=== PATIENT | female | born 1995 | race Caucasian/White ===

== ENCOUNTER 2023-04-09 15:45 | Emergency (ER) | payer SELFPAY ==
[2023-04-09 16:00] VITALS: BP 100/71; PULSE 70; RESP 20; TEMP 97.6
[2023-04-09] MEDS ORDERED: ACETAMINOPHEN 500 MG TABLET (FP) PO ONE (17:15)
[2023-04-09] MEDS ORDERED: ACETAMINOPHEN 1000 MG/100 ML BAG IVPB ONE (17:26)
[2023-04-09] MEDS ORDERED: SODIUM CHLORIDE 0.9% 500 ML INFUS.BAG IV ONE (17:26)
[2023-04-09] MEDS ORDERED: ACETAMINOPHEN INJECTION 100 ML IVPB ONE (17:39)
[2023-04-09 18:22] LABS: EPI CELLS 24 /uL (0-25.1); HCG,QUALITATIVE URINE Negative; HYALINE CASTS 7 /uL (0-3.1); URINE APPEARANCE CLOUDY; URINE BACTERIA >9,000 /uL (0-1359); URINE BILIRUBIN NEGATIVE (NEGATIVE); URINE COLOR YELLOW; URINE GLUCOSE (UA) NEGATIVE (NEGATIVE); URINE KETONE TRACE (NEGATIVE); URINE LEUK ESTERASE 2+ (NEGATIVE); URINE NITRITE POSITIVE (NEGATIVE); URINE PROTEIN 1+ (NEGATIVE); URINE UROBILINOGEN 0.2 mg/dL (0.2-1.0); URINE WBC 624 /uL (0-25.8)
[2023-04-09 18:25] LABS: BASO % 0.5 % (0-2.0); EOS % 1.1 % (0-4.5); HEMATOCRIT 34.3 % (32.4-45.2); HEMOGLOBIN 11.1 GM/dL (10.7-15.3); LYMPH % 23.1 % (8-40); MCH 29.9 pg (25.7-33.7); MCHC 32.3 g/dl (32.0-36.0); MEAN CELL VOLUME 92.5 fl (80-96); MONO % 5.2 % (3.8-10.2); NEUT % 70.1 % (42.8-82.8); PLATELET COUNT 125 10^3/uL (134-434); RBC 3.71 M/mm3 (3.60-5.2); RDW 13.8 % (11.6-15.6); WHITE BLOOD COUNT 10.6 K/mm3 (4.0-10.0)
[2023-04-09 18:33] LABS: POTASSIUM 3.4 mmol/L (3.5-5.1)
[2023-04-09 18:36] LABS: CALCIUM 9.3 mg/dL (8.5-10.1)
[2023-04-09 18:37] LABS: ALBUMIN 3.7 g/dl (3.4-5.0); BLOOD UREA NITROGEN 13.5 mg/dL (7-18)
[2023-04-09 18:40] LABS: CREATININE 0.5 mg/dL (0.55-1.3)
[2023-04-09 18:41] LABS: BILIRUBIN,TOTAL 0.5 mg/dL (0.2-1); TOT PROT 6.8 g/dl (6.4-8.2)
[2023-04-09] MEDS ORDERED: CEFTRIAXONE 1,000 MG in DEXTROSE 5%-WATER - 50 ML IVPB ONE (18:59)
[2023-04-09 19:11] LABS: URINE RBC 31.6 /uL (0-23.9)
[2023-04-09 19:12] LABS: YEAST NONE SEEN (NEGATIVE)
[2023-04-09] MEDS ORDERED: CEFTRIAXONE 1 GM/50 ML BAG ONE (19:41)
== END 2023-04-09 22:26 | disposition home or self-care (01) ==
LOC: JER 15:45
PROC: 3E03329 Introduction of Other Anti-infective into Peripheral Vein, Percutaneous Approach (ICD-10-PCS; principal; 2023-04-09)
PROC: 3E033NZ Introduction of Analgesics, Hypnotics, Sedatives into Peripheral Vein, Percutaneous Approach (ICD-10-PCS; 2023-04-09)
DX: R10.30 Lower abdominal pain, unspecified (principal); R35.0 Frequency of micturition; N39.0 Urinary tract infection, site not specified; N12 Tubulo-interstitial nephritis, not specified as acute or chronic
CPT/HCPCS: 36415; 74176-TC; 80053; 81003; 84702; 84703; 85025; 87086; 87186; 99284-25

== ENCOUNTER 2023-11-03 23:21 | Emergency (ER) | payer OTHER ==
[2023-11-03 23:29] VITALS: BP 104/74; PULSE 92; RESP 18; TEMP 97.8; BMI 20.5
[2023-11-04] MEDS ORDERED: ACETAMINOPHEN INJECTION 100 ML IVPB ONE (00:04)
[2023-11-04] MEDS: ACETAMINOPHEN 1000 MG/100 ML BAG IVPB ONE (00:55)
== END 2023-11-04 02:35 | disposition home or self-care (01) ==
LOC: JER 23:21
PROC: 3E033NZ Introduction of Analgesics, Hypnotics, Sedatives into Peripheral Vein, Percutaneous Approach (ICD-10-PCS; principal; 2023-11-04)
DX: O03.9 Complete or unspecified spontaneous abortion without complication (principal)
CPT/HCPCS: 36415; 76801-TC; 84702; 85025; 86850; 86900; 86901; 99284-25; J0131